=== PATIENT | male | born 1985 | race African-American/Black ===

== ENCOUNTER 2022-10-19 12:24 | Inpatient (IN) | payer OTHER ==
[2022-10-19 14:13] VITALS: BMI 20.9
[2022-10-19] MEDS ORDERED: BISMUTH SUBSALICYLATE 524 MG/30 ML PO PRN (17:47)
[2022-10-19] MEDS ORDERED: IBUPROFEN 400 MG TABLET (FP) PO PRN (17:47)
[2022-10-19] MEDS ORDERED: POLYETHYLENE GLYCOL (HEALTHYLAX) 3350 17 GM PACKET PO PRN (17:47)
[2022-10-19] MEDS ORDERED: DICYCLOMINE HCL 10 MG CAPSULE PO PRN (17:47)
[2022-10-19] MEDS ORDERED: BENZOCAINE/MENTHOL (CHLORASEPTIC ) LOZENGE MM PRN (17:47)
[2022-10-19] MEDS ORDERED: ACETAMINOPHEN 325 MG TABLET (FP) PO PRN ×2 (17:47)
[2022-10-19] MEDS ORDERED: MAG HYDROX/AL HYDROX/SIMETH 30 ML UNIT-DOSE CUP PO PRN (17:47)
[2022-10-19] MEDS ORDERED: ONDANSETRON *ODT* 4 MG TABLET SL PRN (17:47)
[2022-10-19] MEDS ORDERED: MAGNESIUM HYDROX 2400MG/30ML ORAL SUSPENSION 30 ML CUP PO PRN (17:47)
[2022-10-19] MEDS ORDERED: LOPERAMIDE HCL 2 MG CAPSULE PO PRN (17:47)
[2022-10-19] MEDS ORDERED: IBUPROFEN 600 MG TABLET (FP) PO PRN (17:47)
[2022-10-19] MEDS ORDERED: NALOXONE HCL (KLOXXADO) 8 MG SPRAY NS PRN (17:47)
[2022-10-19] MEDS ORDERED: NICOTINE 10 MG CARTRIDGE (INHALER) IH PRN (17:47)
[2022-10-19] MEDS: hydrOXYzine PAMOATE 25 MG CAPSULE (FP) PO PRN (19:34)
[2022-10-19] MEDS: MELATONIN 5 MG TABLETS PO SCH (22:24)
[2022-10-19] MEDS: THIAMINE HCL 100 MG TABLET (FP) PO SCH (22:24)
[2022-10-19] MEDS: METHOCARBAMOL 500 MG TABLET PO PRN (22:24)
[2022-10-20] MEDS ORDERED: chlordiazePOXIDE HCL 10 MG CAPSULE PO PRN
[2022-10-20] MEDS: hydrOXYzine PAMOATE 25 MG CAPSULE (FP) PO PRN ×2 (09:17→17:52)
[2022-10-20] MEDS: PRENATAL VITAMINS W/ FOLIC ACID TABLET (FP) PO SCH (09:17)
[2022-10-20] MEDS: chlordiazePOXIDE HCL 25 MG CAPSULE PO SCH ×3 (11:16→22:38)
[2022-10-20 11:57] LABS: HEMATOCRIT 37.1 % (35.4-49); HEMOGLOBIN 11.9 GM/dL (11.7-16.9); MCH 25.5 pg (25.7-33.7); MCHC 32.1 g/dl (32.0-35.9); MEAN CELL VOLUME 79.5 fl (80-96); MEAN PLT VOLUME 7.4 fl (7.5-11.1); PLATELET COUNT 260 10^3/uL (134-434); RBC 4.67 M/mm3 (4.00-5.60); RDW 15.2 % (11.9-15.9); WHITE BLOOD COUNT 4.3 K/mm3 (4.0-10.0)
[2022-10-20 12:04] LABS: BLOOD UREA NITROGEN 11.9 mg/dL (7-18)
[2022-10-20 12:05] LABS: ALBUMIN 3.5 g/dl (3.4-5.0); CALCIUM 8.9 mg/dL (8.5-10.1)
[2022-10-20 12:08] LABS: CREATININE 0.5 mg/dL (0.55-1.3)
[2022-10-20 12:09] LABS: BILIRUBIN,TOTAL 0.7 mg/dL (0.2-1); TOT PROT 6.5 g/dl (6.4-8.2)
[2022-10-20] MEDS: METHOCARBAMOL 500 MG TABLET PO PRN (15:32)
[2022-10-20] MEDS: MELATONIN 5 MG TABLETS PO SCH (22:37)
[2022-10-20] MEDS: THIAMINE HCL 100 MG TABLET (FP) PO SCH (22:41)
[2022-10-21] MEDS: chlordiazePOXIDE HCL 10 MG CAPSULE PO SCH ×4 (06:07→22:08)
[2022-10-21] MEDS: hydrOXYzine PAMOATE 25 MG CAPSULE (FP) PO PRN ×2 (08:42→22:06)
[2022-10-21] MEDS: METHOCARBAMOL 500 MG TABLET PO PRN ×2 (10:51→22:06)
[2022-10-21] MEDS: PRENATAL VITAMINS W/ FOLIC ACID TABLET (FP) PO SCH (10:51)
[2022-10-21] MEDS: GABAPENTIN 300 MG CAPSULE PO SCH ×2 (14:15→22:06)
[2022-10-21] MEDS: THIAMINE HCL 100 MG TABLET (FP) PO SCH (22:05)
[2022-10-21] MEDS: MELATONIN 5 MG TABLETS PO SCH (22:05)
[2022-10-22] MEDS: chlordiazePOXIDE HCL 10 MG CAPSULE PO SCH ×2 (05:35→17:44)
[2022-10-22] MEDS: GABAPENTIN 300 MG CAPSULE PO SCH ×3 (05:35→22:06)
[2022-10-22] MEDS: hydrOXYzine PAMOATE 25 MG CAPSULE (FP) PO PRN ×2 (08:49→22:08)
[2022-10-22] MEDS: PRENATAL VITAMINS W/ FOLIC ACID TABLET (FP) PO SCH ×2 (10:06→10:38)
[2022-10-22] MEDS: METHOCARBAMOL 500 MG TABLET PO PRN ×2 (14:13→22:06)
[2022-10-22] MEDS: THIAMINE HCL 100 MG TABLET (FP) PO SCH (22:06)
[2022-10-22] MEDS: MELATONIN 5 MG TABLETS PO SCH (22:06)
[2022-10-23] MEDS ORDERED: chlordiazePOXIDE HCL 10 MG CAPSULE PO ONE (05:00)
[2022-10-23] MEDS: GABAPENTIN 300 MG CAPSULE PO SCH ×2 (05:56→13:54)
[2022-10-23] MEDS: METHOCARBAMOL 500 MG TABLET PO PRN (05:59)
[2022-10-23] MEDS: hydrOXYzine PAMOATE 25 MG CAPSULE (FP) PO PRN ×2 (05:59→13:55)
[2022-10-23] MEDS: PRENATAL VITAMINS W/ FOLIC ACID TABLET (FP) PO SCH (10:09)
[2022-10-23 12:52] VITALS: BP 115/79; PULSE 101; RESP 16; TEMP 98.4
== END 2022-10-23 02:53 | disposition other institution (70) | DRG 774 ==
LOC: YASAS 12:24 → Y3N 18:55
PROVIDERS: ADMIT Allergy & Immunology; ATTEND Surgery
PROC: HZ2ZZZZ Detoxification Services for Substance Abuse Treatment (ICD-10-PCS; principal; 2022-10-19)
DX: F10.230 Alcohol dependence with withdrawal, uncomplicated (principal); F14.20 Cocaine dependence, uncomplicated; M25.651 Stiffness of right hip, not elsewhere classified; M54.50 Low back pain, unspecified; G89.29 Other chronic pain; Z87.891 Personal history of nicotine dependence; Z59.01 Sheltered homelessness
CPT/HCPCS: 36415; 80053; 85027; 86780; 87811; C9803-CS; U0003; U0005

== ENCOUNTER 2023-03-31 12:22 | Inpatient (IN) | payer OTHER ==
[2023-03-31 12:46] VITALS: BMI 27.2
[2023-03-31] MEDS ORDERED: NALOXONE HCL (KLOXXADO) 8 MG SPRAY NS PRN (13:28)
[2023-03-31] MEDS ORDERED: MAGNESIUM HYDROX 2400MG/30ML ORAL SUSPENSION 30 ML CUP PO PRN (13:28)
[2023-03-31] MEDS ORDERED: DICYCLOMINE HCL 10 MG CAPSULE PO PRN (13:28)
[2023-03-31] MEDS ORDERED: IBUPROFEN 400 MG TABLET (FP) PO PRN (13:28)
[2023-03-31] MEDS ORDERED: MAG HYDROX/AL HYDROX/SIMETH 30 ML UNIT-DOSE CUP PO PRN (13:28)
[2023-03-31] MEDS ORDERED: BENZONATATE 200 MG CAPSULE PO PRN (13:28)
[2023-03-31] MEDS ORDERED: ACETAMINOPHEN 325 MG TABLET (FP) PO PRN (13:28)
[2023-03-31] MEDS ORDERED: BENZOCAINE/MENTHOL (CHLORASEPTIC ) LOZENGE MM PRN (13:28)
[2023-03-31] MEDS ORDERED: POLYETHYLENE GLYCOL (HEALTHYLAX) 3350 17 GM PACKET PO PRN (13:28)
[2023-03-31] MEDS ORDERED: IBUPROFEN 600 MG TABLET (FP) PO PRN (13:28)
[2023-03-31] MEDS ORDERED: BISMUTH SUBSALICYLATE 524 MG/30 ML PO PRN (13:28)
[2023-03-31] MEDS ORDERED: guaiFENesin 600 MG TABLET.ER (FP) PO PRN (13:28)
[2023-03-31] MEDS ORDERED: NALOXONE HCL 0.4 MG/ML VIAL IM PRN (13:28)
[2023-03-31] MEDS ORDERED: LORazepam 1 MG TABLET PO PRN (13:28)
[2023-03-31] MEDS ORDERED: LOPERAMIDE HCL 2 MG CAPSULE PO PRN (13:28)
[2023-03-31] MEDS ORDERED: ONDANSETRON *ODT* 4 MG TABLET SL PRN (13:28)
[2023-03-31] MEDS: SENNOSIDES 8.6MG TABLET (FP) PO SCH ×2 (14:25→22:07)
[2023-03-31] MEDS: LORazepam 2 MG TABLET PO SCH ×2 (17:17→22:06)
[2023-03-31] MEDS: METHOCARBAMOL 500 MG TABLET PO PRN (20:11)
[2023-03-31] MEDS: hydrOXYzine PAMOATE 25 MG CAPSULE (FP) PO PRN (20:11)
[2023-03-31] MEDS ORDERED: MELATONIN 5 MG TABLETS PO SCH (22:00)
[2023-03-31] MEDS ORDERED: THIAMINE HCL 100 MG TABLET (FP) PO SCH (22:00)
[2023-03-31] MEDS: DOCUSATE SODIUM 100 MG CAPSULE (FP) PO SCH (22:06)
[2023-04-01] MEDS: LORazepam 2 MG TABLET PO SCH ×3 (05:36→17:55)
[2023-04-01] MEDS ORDERED: PRENATAL VITAMINS W/ FOLIC ACID TABLET (FP) PO SCH (10:00)
[2023-04-01] MEDS: METHOCARBAMOL 500 MG TABLET PO PRN ×2 (10:10→17:16)
[2023-04-01] MEDS: DOCUSATE SODIUM 100 MG CAPSULE (FP) PO SCH (10:10)
[2023-04-01] MEDS: hydrOXYzine PAMOATE 25 MG CAPSULE (FP) PO PRN (10:10)
[2023-04-01] MEDS: SENNOSIDES 8.6MG TABLET (FP) PO SCH (10:10)
[2023-04-01 16:35] VITALS: PULSE 81; RESP 17; TEMP 97.8
[2023-04-01 17:53] VITALS: BP 145/98
[2023-04-02] MEDS ORDERED: LORazepam 1 MG TABLET PO SCH (05:00)
[2023-04-03] MEDS ORDERED: LORazepam 0.5 MG TABLET PO PRN
[2023-04-03] MEDS ORDERED: LORazepam 0.5 MG TABLET PO SCH (05:00)
[2023-04-04] MEDS ORDERED: LORazepam 0.5 MG TABLET PO ONE (05:00)
== END 2023-04-01 19:39 | disposition left against medical advice (07) | DRG 770 ==
LOC: YASAS 12:22 → Y6N 13:50
PROVIDERS: ADMIT Allergy & Immunology; ATTEND Surgery
PROC: HZ2ZZZZ Detoxification Services for Substance Abuse Treatment (ICD-10-PCS; principal; 2023-03-31)
DX: F10.230 Alcohol dependence with withdrawal, uncomplicated (principal); F17.210 Nicotine dependence, cigarettes, uncomplicated; F41.9 Anxiety disorder, unspecified; M16.11 Unilateral primary osteoarthritis, right hip; M25.651 Stiffness of right hip, not elsewhere classified; M54.50 Low back pain, unspecified; G89.29 Other chronic pain; Z59.01 Sheltered homelessness
CPT/HCPCS: 87635; 87811